=== PATIENT | female | born 1970 | race Two or more races ===

== ENCOUNTER → 2016-09-03 | Outpatient (CLI) | payer BC | END | disposition home or self-care (01) | LOC: CFH 07:53 | PROVIDERS: ATTEND Obstetrics & Gynecology | DX: Z12.31 Encounter for screening mammogram for malignant neoplasm of breast (principal) | CPT/HCPCS: 77063; G0202 ==

== ENCOUNTER → 2017-09-23 | Outpatient (CLI) | payer BC | END | disposition home or self-care (01) | LOC: CFH 07:11 | PROVIDERS: ATTEND Obstetrics & Gynecology | DX: Z12.31 Encounter for screening mammogram for malignant neoplasm of breast (principal) | CPT/HCPCS: 77063; 77067 ==

== ENCOUNTER 2020-05-17 18:12 | Emergency (ER) | payer BC ==
[~2020-05-17] VITALS: Ht 157.5 cm; Wt 74.0 kg
--- NOTE | 2020-05-17 18:35 | NUR ---
PATIENT AMBULATED TO BATHROOM WITH STEADY GAIT FOR URINE SAMPLE.
--- NOTE | 2020-05-17 18:55 | NUR ---
REPORT TO CAROLYNE BALL FOR TRANSFER OF PATIENT CARE.
--- NOTE | 2020-05-17 19:00 | NUR ---
REPORT FROM CHIRAG BARFIELD CARE OF PATIENT ASSUMED- NAD WITH ASSESMENT-CC UA OBTAINED AND SENT FOR ANALYSIS ERP TO BEDSIDE TO PERFORM PELVIC AND UA
[2020-05-17 19:38] LABS: MICROSCOPIC AUTO
--- NOTE | 2020-05-17 20:20 | NUR ---
ERP PERFORMED PELVIC AT BEDSIDE
[2020-05-17] MEDS ORDERED: FLUCONAZOLE 100 MG TABLET PO ONE (20:30)
[2020-05-17] MEDS ORDERED: IBUPROFEN 800 MG TABLET PO ONE (20:30)
[2020-05-17] MEDS ORDERED: IBUPROFEN 800 MG TABLET ONE (20:50)
[2020-05-17] MEDS ORDERED: FLUCONAZOLE 100 MG TABLET ONE (20:50)
--- NOTE | 2020-05-17 20:58 | NUR ---
MEDICATED PER EMAR FOR PAIN/PERINEAL INFECTION
[2020-05-17 21:13] LABS: CLUE CELLS NONE SEEN (NONE SEEN); WET PREP WBCS MODERATE (FEW)
[2020-05-17 21:42] VITALS: BP 129/80
--- NOTE | 2020-05-17 21:43 | NUR ---
Pain improved to 3/10 reviewed dicharged plan (take additional dose of fluconazole tomorrow and followup with gynecoclogy) also provided information of how sti results will be communicated
== END 2020-05-17 21:49 | disposition home or self-care (01) ==
LOC: ED 21:30
DX: B37.3 Candidiasis of vulva and vagina (principal); R10.2 Pelvic and perineal pain; R30.0 Dysuria
CPT/HCPCS: 81001; 87086; 87210; 87491; 87591; 87808; 99284